=== PATIENT | male | born 1995 | race African-American/Black ===

== ENCOUNTER 2021-08-10 14:01 | Emergency (ER) | payer OTHER, SELFPAY ==
[2021-08-10 14:12] VITALS: BP 134/66; PULSE 93; RESP 18; TEMP 36.7; O2SAT 97
[2021-08-10 15:41] VITALS: BP 134/66; PULSE 80; RESP 16; TEMP 36.8; O2SAT 97
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
[2021-08-10] MEDS: metroNIDAZOLE 250 MG TABLET 2000 MG PO (16:48)
[2021-08-10] MEDS: AZITHROMYCIN 250 MG TABLET 1000 MG PO (16:48)
[2021-08-10] MEDS: cefTRIAXone 1 GM VIAL 0.5 GM IM (16:49)
[2021-08-10 17:33] LABS: Add Urine Microscopic? YES; Appearance Urine Clear (Clear); Bilirubin Urine Negative (Negative); Blood Urine Negative (Negative); Color Urine Yellow (Yellow); Glucose Urine UA Negative (Negative); Ketones Urine Negative (Negative); Leukocyte Esterase Ur Trace LEU/UL (Negative); Mucus Urine Rare /lpf; Nitrate Urine Negative (Negative); Protein Urine Negative (Negative); Specific Grav Ur 1.024 (1.001-1.035)
== END 2021-08-10 18:11 | disposition home or self-care (01) ==
PROVIDERS: Emergency Provider General Practice
DX: Z20.2 Contact with and (suspected) exposure to infections with a predominantly sexual mode of transmission (principal)
CPT/HCPCS: 81001; 87086; 87491; 87591; 96372; 99283; A9270; J0696

== ENCOUNTER 2021-11-12 07:54 | Emergency (ER) | payer OTHER, SELFPAY ==
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
[2021-11-12 08:01] VITALS: BP 149/84; PULSE 66; RESP 18; TEMP 36.6; O2SAT 98
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
[2021-11-12 10:56] VITALS: BP 136/80; PULSE 68; RESP 18
== END 2021-11-12 10:57 | disposition home or self-care (01) ==
PROVIDERS: Emergency Provider Emergency Medicine
DX: S62.323A Displaced fracture of shaft of third metacarpal bone, left hand, initial encounter for closed fracture (principal); V49.9XXA Car occupant (driver) (passenger) injured in unspecified traffic accident, initial encounter
CPT/HCPCS: 29125; 73130; 99284